=== PATIENT | female | born 1940 | race Caucasian/White ===

== ENCOUNTER → 2017-05-16 | Outpatient (CLI) | payer MEDICARE, OTHER ==
[2017-05-16 10:29] LABS: PTH INTACT INTERPRETATION ** Comment **
[2017-05-16 12:12] LABS: HEMATOCRIT 37.1 % (34.6-47.8); HEMOGLOBIN 12.2 g/dL (11.7-16.4); WHITE BLOOD COUNT 8.2 x10^3/uL (3.4-10)
[2017-05-16 12:24] LABS: ASPARTATE AMINO TRANSFERASE 15 U/L (15-37); BLOOD UREA NITROGEN 22 mg/dL (7-18)
[2017-05-16 12:46] LABS: PARATHYROID HORMONE INTACT 19.4 pg/mL (14-72)
== END | disposition home or self-care (01) ==
LOC: CFH 08:51
PROVIDERS: ATTEND Internal Medicine Hematology & Oncology
DX: C50.211 Malignant neoplasm of upper-inner quadrant of right female breast (principal)
CPT/HCPCS: 36415; 80053; 82310; 83970; 85025

== ENCOUNTER → 2017-05-21 | Outpatient (CLI) | payer MEDICARE, OTHER | END | disposition home or self-care (01) | LOC: CFH 13:30 | PROVIDERS: ATTEND Internal Medicine Hematology & Oncology | DX: I08.0 Rheumatic disorders of both mitral and aortic valves (principal); C50.211 Malignant neoplasm of upper-inner quadrant of right female breast | CPT/HCPCS: 93306 ==

== ENCOUNTER → 2017-05-27 | Outpatient (CLI) | payer MEDICARE, OTHER | END | disposition home or self-care (01) | LOC: PETCFH 09:27 | PROVIDERS: ATTEND Internal Medicine Hematology & Oncology | DX: C50.211 Malignant neoplasm of upper-inner quadrant of right female breast (principal); Z85.3 Personal history of malignant neoplasm of breast | CPT/HCPCS: 78306; A9503 ==

== ENCOUNTER → 2017-05-27 | Outpatient (CLI) | payer MEDICARE, OTHER ==
[~2017-05-27] MED LIST: OMNIPAQUE 350 MG/ML, 100ML BOTTLE ONE
== END | disposition home or self-care (01) ==
LOC: CFH 09:25
PROVIDERS: ATTEND Internal Medicine Hematology & Oncology
DX: K76.89 Other specified diseases of liver (principal); J98.6 Disorders of diaphragm; M43.8X4 Other specified deforming dorsopathies, thoracic region; C50.211 Malignant neoplasm of upper-inner quadrant of right female breast; Z98.890 Other specified postprocedural states
CPT/HCPCS: 71260; 74177; Q9967

== ENCOUNTER → 2018-10-15 | Outpatient (CLI) | payer MEDICARE, OTHER | END | disposition home or self-care (01) | LOC: PETCFH 10:28 | PROVIDERS: ATTEND Internal Medicine Hematology & Oncology | DX: M47.816 Spondylosis without myelopathy or radiculopathy, lumbar region (principal); M47.812 Spondylosis without myelopathy or radiculopathy, cervical region; M17.0 Bilateral primary osteoarthritis of knee; M19.032 Primary osteoarthritis, left wrist; M19.031 Primary osteoarthritis, right wrist; M19.072 Primary osteoarthritis, left ankle and foot; M19.071 Primary osteoarthritis, right ankle and foot; I51.7 Cardiomegaly; J98.11 Atelectasis; M85.88 Other specified disorders of bone density and structure, other site; I70.0 Atherosclerosis of aorta; K57.30 Diverticulosis of large intestine without perforation or abscess without bleeding | CPT/HCPCS: 71260; 74177; 78306; A9503; Q9967 ==

== ENCOUNTER → 2019-01-08 | Outpatient (CLI) | payer MEDICARE, OTHER | END | disposition home or self-care (01) | LOC: CFH 15:17 | PROVIDERS: ATTEND Internal Medicine Hematology & Oncology | DX: I08.0 Rheumatic disorders of both mitral and aortic valves (principal); C50.211 Malignant neoplasm of upper-inner quadrant of right female breast; I11.0 Hypertensive heart disease with heart failure; I50.9 Heart failure, unspecified | CPT/HCPCS: 93306 ==

== ENCOUNTER 2019-04-19 07:06 | Outpatient (CLI) | payer MEDICARE, OTHER | END 2019-04-19 23:59 | disposition home or self-care (01) | LOC: CFH 07:06 | PROVIDERS: ATTEND Internal Medicine Hematology & Oncology | DX: C50.211 Malignant neoplasm of upper-inner quadrant of right female breast (principal); I74.2 Embolism and thrombosis of arteries of the upper extremities | CPT/HCPCS: 36415; 80053 ==

== ENCOUNTER → 2019-11-10 | Outpatient (CLI) | payer MEDICARE, OTHER | END | disposition home or self-care (01) | LOC: RAD 08:26 | PROVIDERS: ATTEND Internal Medicine Hematology & Oncology | DX: C50.211 Malignant neoplasm of upper-inner quadrant of right female breast (principal); I71.2 Thoracic aortic aneurysm, without rupture; K76.89 Other specified diseases of liver; J94.8 Other specified pleural conditions; K76.0 Fatty (change of) liver, not elsewhere classified; J98.11 Atelectasis; Q67.6 Pectus excavatum; K57.30 Diverticulosis of large intestine without perforation or abscess without bleeding; I70.0 Atherosclerosis of aorta; M51.34 Other intervertebral disc degeneration, thoracic region; M47.816 Spondylosis without myelopathy or radiculopathy, lumbar region; M19.042 Primary osteoarthritis, left hand; M19.041 Primary osteoarthritis, right hand; M19.072 Primary osteoarthritis, left ankle and foot; M19.071 Primary osteoarthritis, right ankle and foot; Z98.82 Breast implant status | CPT/HCPCS: 71260; 74177; 78306; A9503; Q9967 ==

== ENCOUNTER → 2020-05-10 | Outpatient (CLI) | payer MEDICARE, OTHER | END | disposition home or self-care (01) | LOC: CFH 14:06 | PROVIDERS: ATTEND Internal Medicine Hematology & Oncology | DX: Z51.11 Encounter for antineoplastic chemotherapy (principal); Z51.12 Encounter for antineoplastic immunotherapy; C50.211 Malignant neoplasm of upper-inner quadrant of right female breast; R06.02 Shortness of breath; R19.7 Diarrhea, unspecified; Z79.899 Other long term (current) drug therapy | CPT/HCPCS: 36415; 82728; 83516; 83540; 83550; 84466; 86038; 86705; 86709; 86803; 87340 ==

== ENCOUNTER 2020-06-07 11:06 | Day surgery (SDC) | payer MEDICARE, OTHER ==
[~2020-06-07] VITALS: Ht 170.2 cm; Wt 57.5 kg
[2020-06-07 11:36] VITALS: BP 123/77
[2020-06-07 12:11] LABS: INTERNATIONAL NORMALIZED RATIO 0.99 (0.93-1.1); PROTHROMBIN TIME 10.2 Seconds (9.6-11.5)
[2020-06-07] MEDS ORDERED: SODIUM CHLORIDE 0.9% 1,000 ML IV SCH (13:00)
[2020-06-07] MEDS ORDERED: LIDOCAINE 1%, 10ML ONE (13:04)
[2020-06-07] MEDS ORDERED: FENTANYL PF 100 MCG/2ML ONE (13:10)
[2020-06-07] MEDS ORDERED: FLUMAZENIL 0.1 MG/1 ML, 5ML ONE (13:10)
[2020-06-07] MEDS ORDERED: NALOXONE 1 MG/ML, 2ML ONE (13:10)
[2020-06-07] MEDS ORDERED: MIDAZOLAM 1 MG/ML, 5ML ONE (13:10)
== END 2020-06-07 15:15 | disposition home or self-care (01) ==
LOC: OUT 11:06
PROVIDERS: ATTEND Internal Medicine Hematology & Oncology
DX: R94.5 Abnormal results of liver function studies (principal); K75.89 Other specified inflammatory liver diseases; C50.211 Malignant neoplasm of upper-inner quadrant of right female breast; I10 Essential (primary) hypertension; Z17.1 Estrogen receptor negative status [ER-]; Z79.899 Other long term (current) drug therapy; Z90.710 Acquired absence of both cervix and uterus; Z98.890 Other specified postprocedural states
CPT/HCPCS: 36415; 47000; 76942; 85610; 88307; 88313; 99156; J2250; J3010; J2310

== ENCOUNTER 2020-10-18 11:21 | Outpatient (CLI) | payer MEDICARE, OTHER ==
[2020-10-18] MEDS ORDERED: LIDOCAINE-MPF 1%, 5ML ONE (12:29)
[2020-10-18] MEDS ORDERED: VISIPAQUE 270 MG/ML, 50ML BOTTLE ONE (12:59)
== END 2020-10-18 23:59 | disposition home or self-care (01) ==
LOC: RAD 11:21
PROVIDERS: ATTEND Internal Medicine Hematology & Oncology
DX: T82.898A Other specified complication of vascular prosthetic devices, implants and grafts, initial encounter (principal); C50.211 Malignant neoplasm of upper-inner quadrant of right female breast; Y83.8 Other surgical procedures as the cause of abnormal reaction of the patient, or of later complication, without mention of misadventure at the time of the procedure
CPT/HCPCS: 36598; J1642; Q9966; 76000